=== PATIENT | male | born 1960 | race Caucasian/White ===

== ENCOUNTER → 2020-11-02 | Outpatient (CLI) | payer BC ==
[~2020-11-02] VITALS: Ht 188 cm; Wt 119.3 kg
[2020-11-02] VITALS (18 sets, daily range): BP systolic 129–157; BP diastolic 76–111; PULSE 89–105
[~2020-11-02] MED LIST: ACTOS30 MG PO; ALTACE 5MG5 MG PO; COMBIRESP IH; COREG 3.123.125 MG/T PO; CRESTOR40 MG PO; ELIQUIS 5MG PO; HUMALOG PEN100 U/ML SQ; JARDIANCE25 PO; LANTUS SOLOS100 U/ML SQ; LOFIBRA54 MG PO; PEPCID 20MG TAB20 MG PO; SYNTHROID0.088 MG/T PO; ULTRAM 50MG TAB50 MG PO; VASCEPA1 GM PO; ZETIA 10MG TAB10 MG PO
--- NOTE | 2020-11-02 09:50 | NUR ---
pt to ct per ambulation. Monitors applied, O2 on at 2l/nc.
--- NOTE | 2020-11-02 10:05 | NUR ---
Pt repositioned to right side elevated with pillows. Left side down.
--- NOTE | 2020-11-02 10:30 | NUR ---
Specimens obtained and placed in formalin by Dr Soto, specimen labeled.
== END ==
LOC: COL.RAD 08:35
DX: M79.89 Other specified soft tissue disorders (principal); R91.8 Other nonspecific abnormal finding of lung field
CPT/HCPCS: J3010